=== PATIENT | male | born 1960 | race Caucasian/White ===

== ENCOUNTER 2025-02-11 14:46 | Inpatient (IN) | payer MEDICARE, MEDICAID ==
[~2025-02-11] VITALS: Ht 177.8 cm; Wt 75.0 kg
[~2025-02-11 14:46] MED LIST: ARIP10TA38 PO; QUET200T PO; SERT-158 PO
[2025-02-11 15:06] LABS: GLUCOMETER DEV NAME(LOC) ER.7; GLUCOSE,POINT OF CARE 183 MG/DL (70-110)
[2025-02-11 15:20] LABS: PLATELET COUNT (AUTO) 300 K/uL (150-450); RED BLOOD CELL COUNT(AUTO) 4.16 MIL/uL (4.50-5.90); RED CELL DISTRIBUTION WIDTH 12.5 % (11.5-14.5); WHITE BLOOD COUNT (AUTO) 9.2 K/uL (4.5-11.0)
[2025-02-11 15:28] LABS: CALCIUM, TOTAL 9.3 mg/dL (8.8-10.5); CREATININE 1.74 mg/dL (0.60-1.30); GLOMERULAR FILTR. RATE CALC 40.0 mL/min (>60); GLUCOSE,RANDOM 152.0 mg/dL (70-110); SODIUM SERUM 131.0 mmol/L (136-145); UREA NITROGEN, BLOOD 34.0 mg/dL (7-18)
[2025-02-11 15:45] LABS: COVID AG,FIA SOURCE NASAL SWAB
[2025-02-11] MEDS: SODIUM CHLORIDE 0.9% 1,000 ML IV ONE (16:13)
[2025-02-11 16:41] LABS: SARS-COV2 (COVID) ANTIGEN,FIA Negative (Negative)
[2025-02-11 18:03] LABS: APPEARANCE,URINE CLEAR (CLEAR); GLUCOSE, URINE (UA) 70-100 mg/dL (NEGATIVE); LEUKOCYTE ESTERASE ,URINE NEGATIVE (NEGATIVE); NITRATE,URINE NEGATIVE (NEGATIVE); OCCULT BLOOD,URINE NEGATIVE (NEGATIVE); PH,URINE DRUG SCREEN 5.0 (5.0-8.0); SPECIFIC GRAVITIY, URINE 1.008 (1.003-1.030)
[2025-02-11 18:06] LABS: SQUAMOUS EPITHELIAL CELL,UR Rare /LPF (None Seen)
[2025-02-11 18:10] LABS: ALCOHOL, URINE DRUG SCREEN NEGATIVE (NEGATIVE); AMPHET/METH SCREEN,URINE POSITIVE (NEGATIVE); BARBITURATE SCREEN, URINE NEGATIVE (NEGATIVE); CANNABINOID SCREEN,URINE POSITIVE (NEGATIVE); COCAINE SCREEN,URINE NEGATIVE (NEGATIVE); METHADONE SCREEN, URINE NEGATIVE (NEGATIVE)
[2025-02-11 21:00] VITALS: O2SAT 99
[2025-02-11 23:30] VITALS: BP 106/67; PULSE 60; RESP 18; TEMP 97.1; O2SAT 99
[2025-02-11] MEDS: ZOLPIDEM TARTRATE 10 MG TABLET PO PRN (23:34)
[2025-02-12 00:46] LABS: GLUCOMETER DEV NAME(LOC) BV2X.3; GLUCOSE,POINT OF CARE 132 MG/DL (70-110)
[2025-02-12] MEDS: PNEUMOCOCCAL VACCINE POLYVALENT 0.5 ML SYRINGE [PPSV23] IM. ONE (02:00)
[2025-02-12 06:41] LABS: GLUCOMETER DEV NAME(LOC) BV2X.3; GLUCOSE,POINT OF CARE 119 MG/DL (70-110)
[2025-02-12 08:21] VITALS: BP 105/82; PULSE 60; RESP 16; TEMP 97.8; O2SAT 99
[2025-02-12] MEDS: EMTRICITABINE/TENOFOV ALAFENAM 200-25 MG TABLET PO SCH (14:14)
[2025-02-12] MEDS: DOLUTEGRAVIR SODIUM 50 MG TABLET PO SCH (14:15)
[2025-02-12] MEDS ORDERED: MAG HYDROX/ALUMINUM HYD/SIMETH ES 30 ML SUSPENSION UDCUP PO PRN (16:15)
[2025-02-12] MEDS ORDERED: MAGNESIUM HYDROXIDE SUSPENSION 30 ML UDCUP PO PRN (16:15)
[2025-02-12] MEDS ORDERED: MELATONIN 5 MG TABLET PO PRN (16:15)
[2025-02-12] MEDS ORDERED: TUBERCULIN, PURIFIED PROTEIN DERIVATIVE 5 TU/0.1 ML SYRINGE ID ONE (16:15)
[2025-02-12] MEDS ORDERED: ACETAMINOPHEN 325 MG TABLET PO PRN (16:15)
[2025-02-12] MEDS ORDERED: GuaiFENesin/D-METHORPHAN [SUGAR-FREE] 200-20MG/10 ML SYRUP UDCUP PO PRN (16:15)
[2025-02-12] MEDS ORDERED: PALIPERIDONE PALMITATE 234 MG/1.5 ML SYRINGE IM ONE (16:15)
[2025-02-12] MEDS ORDERED: LOPERAMIDE HCL 2 MG CAPSULE PO PRN (16:15)
[2025-02-12] MEDS ORDERED: PROMETHAZINE HCL 25 MG TABLET PO PRN (16:15)
[2025-02-12] MEDS: THIAMINE 100 MG TABLET PO SCH (16:35)
[2025-02-12 18:30] LABS: GLUCOMETER DEV NAME(LOC) BV2X.3; GLUCOSE,POINT OF CARE 132 MG/DL (70-110)
[2025-02-12 20:29] VITALS: BP 125/74; PULSE 91; RESP 18; TEMP 98.2; O2SAT 98
[2025-02-12] MEDS: OLANZapine 5 MG RAPDIS TABLET PO SCH (20:35)
[2025-02-12] MEDS: ATORVASTATIN CALCIUM 20 MG TABLET PO SCH (20:35)
[2025-02-13 05:56] LABS: GLUCOMETER DEV NAME(LOC) BV2X.3; GLUCOSE,POINT OF CARE 132 MG/DL (70-110)
[2025-02-13 08:25] VITALS: BP 104/78; PULSE 68; RESP 17; TEMP 96.4; O2SAT 99
[2025-02-13] MEDS: FOLIC ACID 1 MG TABLET PO SCH (08:34)
[2025-02-13] MEDS: MULTIVITAMINS WITH MINERALS, THERAPEUTIC TABLET PO SCH (08:35)
[2025-02-13] MEDS: NALTREXONE HCL 50 MG TABLET PO SCH (08:35)
[2025-02-13 09:05] LABS: PLATELET COUNT (AUTO) 222 K/uL (150-450); RED BLOOD CELL COUNT(AUTO) 4.02 MIL/uL (4.50-5.90); RED CELL DISTRIBUTION WIDTH 13.0 % (11.5-14.5); WHITE BLOOD COUNT (AUTO) 5.9 K/uL (4.5-11.0)
[2025-02-13] MEDS: PALIPERIDONE PALMITATE 234 MG/1.5 ML SYRINGE IM ONE (09:42)
[2025-02-13 09:45] LABS: ASPARTATE AMINOTRANSFERASE 18.0 U/L (15-37); CALCIUM, TOTAL 8.8 mg/dL (8.8-10.5); CHOL/HDL RATIO 3.1 (4.2-7.3); CREATININE 1.44 mg/dL (0.60-1.30); GLOMERULAR FILTR. RATE CALC 49.0 mL/min (>60); GLUCOSE,RANDOM 118.0 mg/dL (70-110); LDL CHOL (CALC.) 51.0 mg/dL (0-130); SODIUM SERUM 141.0 mmol/L (136-145); TOTAL PROTEIN, SERUM 6.5 g/dL (6.4-8.2); UREA NITROGEN, BLOOD 25.0 mg/dL (7-18)
[2025-02-13 13:55] LABS: GLUCOMETER DEV NAME(LOC) BV2X.3; GLUCOSE,POINT OF CARE 167 MG/DL (70-110)
[2025-02-13 20:27] VITALS: BP 110/67; PULSE 67; RESP 17; TEMP 97.3; O2SAT 100
[2025-02-14 07:00] LABS: GLUCOMETER DEV NAME(LOC) BV2X.3; GLUCOSE,POINT OF CARE 142 MG/DL (70-110)
[2025-02-14 08:14] VITALS: BP 111/68; PULSE 93; RESP 18; TEMP 97.5; O2SAT 99
[2025-02-14] MEDS: DULoxetine HCL 20 MG CAPSULE PO SCH (09:16)
[2025-02-14 16:11] VITALS: BP 126/89; PULSE 95; RESP 18; TEMP 97.9; O2SAT 100
[2025-02-14 20:15] VITALS: BP 129/90; PULSE 91; RESP 17; TEMP 97.3; O2SAT 95
[2025-02-15 07:16] LABS: GLUCOMETER DEV NAME(LOC) 3E.I 2; GLUCOSE,POINT OF CARE 134 MG/DL (70-110)
[2025-02-15 09:54] VITALS: BP 101/64; PULSE 70; RESP 18; TEMP 98.1; O2SAT 100
[2025-02-15 20:14] VITALS: BP 124/84; PULSE 74; RESP 18; TEMP 98.8; O2SAT 96
[2025-02-16 06:26] LABS: GLUCOMETER DEV NAME(LOC) 3E.I 2; GLUCOSE,POINT OF CARE 124 MG/DL (70-110)
[2025-02-16 11:02] VITALS: BP 98/65; PULSE 71; RESP 19; TEMP 98.3; O2SAT 99
[2025-02-16 20:09] VITALS: BP 114/70; PULSE 74; RESP 19; TEMP 98.4; O2SAT 99
[2025-02-17 06:51] LABS: GLUCOMETER DEV NAME(LOC) 3E.I 2; GLUCOSE,POINT OF CARE 126 MG/DL (70-110)
[2025-02-17] MEDS: DULoxetine HCL 30 MG CAPSULE PO SCH (09:39)
[2025-02-17] MEDS: PALIPERIDONE PALMITATE 156 MG/ML SYRINGE IM ONE (10:06)
[2025-02-17 10:55] VITALS: BP 103/75; PULSE 62; RESP 18; TEMP 99.1; O2SAT 97
[2025-02-17 21:18] VITALS: BP 110/74; PULSE 100; RESP 19; TEMP 98.6; O2SAT 98
[2025-02-18 06:35] LABS: GLUCOMETER DEV NAME(LOC) 3E.I 2; GLUCOSE,POINT OF CARE 133 MG/DL (70-110)
[2025-02-18 08:46] VITALS: BP 104/63; PULSE 65; RESP 19; TEMP 97.8; O2SAT 97
[2025-02-18 14:50] VITALS: BP 118/66; PULSE 72; RESP 18
[2025-02-18 21:03] VITALS: BP 100/68; PULSE 65; RESP 19; TEMP 98; O2SAT 96
[2025-02-19 06:46] LABS: GLUCOMETER DEV NAME(LOC) 3E.I 2; GLUCOSE,POINT OF CARE 119 MG/DL (70-110)
[2025-02-19 09:09] VITALS: BP 132/90; PULSE 68; RESP 18; TEMP 98.1; O2SAT 96
[2025-02-19 11:51] LABS: GLUCOMETER DEV NAME(LOC) 3E.I 2; GLUCOSE,POINT OF CARE 150 MG/DL (70-110)
[2025-02-19] MEDS ORDERED: NALT50TA33 PO (12:32)
[2025-02-19] MEDS ORDERED: MELA5TAB40 PO (12:32)
[2025-02-19] MEDS ORDERED: DULO30CA62 PO (12:32)
[2025-02-19] MEDS ORDERED: QUET200T30 PO (12:32)
[2025-02-19] MEDS ORDERED: ARIP10TA38 PO (12:32)
[2025-02-19] MEDS ORDERED: ATOR20TA PO (12:51)
[2025-02-19] MEDS ORDERED: LISI-894 PO (12:51)
[2025-02-19] MEDS ORDERED: METF-1211 PO (12:51)
== END 2025-02-19 17:28 | disposition home or self-care (01) | DRG 885 ==
LOC: EMS 14:46 → 3EX 22:09 → EMS 22:09 → B2X 22:37 → UNDOADMIN 22:37 → B2X 02-12 16:00 → 3EX 02-14 15:10
PROVIDERS: ADMIT Psychiatry & Neurology Psychiatry; ATTEND Psychiatry & Neurology Psychiatry
PROC: GZ58ZZZ Individual Psychotherapy, Cognitive-Behavioral (ICD-10-PCS; principal; 2025-02-11)
PROC: GZ56ZZZ Individual Psychotherapy, Supportive (ICD-10-PCS; 2025-02-12)
DX: F25.0 Schizoaffective disorder, bipolar type (principal); Z59.00 Homelessness unspecified; F41.9 Anxiety disorder, unspecified; I10 Essential (primary) hypertension; F17.200 Nicotine dependence, unspecified, uncomplicated; D64.9 Anemia, unspecified; Z20.822 Contact with and (suspected) exposure to COVID-19; E11.9 Type 2 diabetes mellitus without complications; F15.10 Other stimulant abuse, uncomplicated; K75.9 Inflammatory liver disease, unspecified; Z21 Asymptomatic human immunodeficiency virus [HIV] infection status; Z55.9 Problems related to education and literacy, unspecified; Z59.9 Problem related to housing and economic circumstances, unspecified; Z63.9 Problem related to primary support group, unspecified; Z65.3 Problems related to other legal circumstances; Z91.199 Patient's noncompliance with other medical treatment and regimen due to unspecified reason
CPT/HCPCS: 71046; 76770; 80048; 80053; 80061; 80307; 81001; 82962; 83036; 84439; 84443; 85025; 86592; 96360; 99285; G0378; G0480; 36415-L1; 36415-TC